=== PATIENT | female | born 1945 | race Caucasian/White ===

== ENCOUNTER 2023-10-05 14:02 | Outpatient (CLI) | payer MEDICARE | END 2023-10-05 14:03 | disposition home or self-care (01) | LOC: CSHMAMMO 14:02 | PROVIDERS: ATTEND Nurse Practitioner Family | DX: Z13.820 Encounter for screening for osteoporosis (principal); M81.0 Age-related osteoporosis without current pathological fracture; M85.88 Other specified disorders of bone density and structure, other site; Z78.0 Asymptomatic menopausal state | CPT/HCPCS: 77080 ==